=== PATIENT | female | born 1945 | race Two or more races ===

== ENCOUNTER → 2018-10-14 06:36 | Outpatient (CLI) | payer OTHER ==
[~2018-10-14 06:36] MED LIST: ONGLYZA5 MG PO; SYNTHROID50 MCG PO; TOPROL XL100 M1 PO
== END | disposition home or self-care (01) ==
LOC: LAB 06:36
DX: D51.3 Other dietary vitamin B12 deficiency anemia (principal); E03.8 Other specified hypothyroidism; F10.10 Alcohol abuse, uncomplicated; I10 Essential (primary) hypertension; J30.89 Other allergic rhinitis; D50.8 Other iron deficiency anemias; D51.8 Other vitamin B12 deficiency anemias; K90.89 Other intestinal malabsorption; R97.0 Elevated carcinoembryonic antigen [CEA]; K70.9 Alcoholic liver disease, unspecified

== ENCOUNTER → 2018-12-11 | Outpatient (CLI) | payer OTHER | END | disposition home or self-care (01) | LOC: SONOGRAMA 07:26 → MAMO-SONO 08:15 | DX: D51.3 Other dietary vitamin B12 deficiency anemia (principal); K70.9 Alcoholic liver disease, unspecified; F10.10 Alcohol abuse, uncomplicated; I10 Essential (primary) hypertension; J30.89 Other allergic rhinitis; E03.8 Other specified hypothyroidism; K75.89 Other specified inflammatory liver diseases; K76.89 Other specified diseases of liver; E04.2 Nontoxic multinodular goiter ==

== ENCOUNTER 2019-02-21 12:03 | Outpatient (CLI) | payer OTHER | END 2019-02-21 12:06 | disposition home or self-care (01) | LOC: LAB 12:03 | DX: N20.0 Calculus of kidney (principal) ==

== ENCOUNTER → 2019-02-24 08:25 | Outpatient (CLI) | payer OTHER | END | disposition home or self-care (01) | LOC: LAB 08:25 | DX: D51.3 Other dietary vitamin B12 deficiency anemia (principal); K70.9 Alcoholic liver disease, unspecified; F10.10 Alcohol abuse, uncomplicated; I10 Essential (primary) hypertension; J30.89 Other allergic rhinitis; E03.8 Other specified hypothyroidism; K75.89 Other specified inflammatory liver diseases; K76.89 Other specified diseases of liver; D50.8 Other iron deficiency anemias; D51.8 Other vitamin B12 deficiency anemias; K90.89 Other intestinal malabsorption; R97.0 Elevated carcinoembryonic antigen [CEA]; C22.9 Malignant neoplasm of liver, not specified as primary or secondary ==

== ENCOUNTER 2019-03-05 07:28 | Outpatient (CLI) | payer OTHER | END 2019-03-05 08:03 | disposition home or self-care (01) | LOC: TOM 07:28 | DX: K70.40 Alcoholic hepatic failure without coma (principal); I10 Essential (primary) hypertension; J30.89 Other allergic rhinitis; K75.89 Other specified inflammatory liver diseases; K76.89 Other specified diseases of liver; D51.3 Other dietary vitamin B12 deficiency anemia; F10.10 Alcohol abuse, uncomplicated | CPT/HCPCS: 74177; Q9965 ==

== ENCOUNTER 2019-10-24 06:25 | Outpatient (CLI) | payer OTHER | END 2019-10-24 06:32 | disposition home or self-care (01) | LOC: LAB 06:25 | DX: D50.8 Other iron deficiency anemias (principal); I10 Essential (primary) hypertension; D51.3 Other dietary vitamin B12 deficiency anemia; K70.40 Alcoholic hepatic failure without coma; F10.10 Alcohol abuse, uncomplicated; J30.89 Other allergic rhinitis; E03.8 Other specified hypothyroidism; K75.89 Other specified inflammatory liver diseases; K76.89 Other specified diseases of liver; R10.10 Upper abdominal pain, unspecified; C18.8 Malignant neoplasm of overlapping sites of colon; C22.9 Malignant neoplasm of liver, not specified as primary or secondary; C25.7 Malignant neoplasm of other parts of pancreas; D51.8 Other vitamin B12 deficiency anemias; E55.9 Vitamin D deficiency, unspecified; K90.89 Other intestinal malabsorption; R97.0 Elevated carcinoembryonic antigen [CEA] ==